=== PATIENT | female | born 1940 | race Caucasian/White ===

== ENCOUNTER 2024-05-15 18:07 | Emergency (ER) | payer MEDICARE, MEDICAID, SELFPAY ==
--- NOTE | ~2024-05-15 | XR_ITS ---
XR hand LT min 3V Ordering provider: Yari Monzon NP History: . injury fell pain dorsal hand . Comparison: None. FINDINGS: BONES: Fracture at the base of the fifth metacarpal bone is noted. No other fractures seen. JOINT SPACES: Well maintained. SOFT TISSUES: Soft tissue swelling in the area of the fifth metacarpal bone. IMPRESSION: Fracture of the base of the fifth metacarpal bone with no significant displacement. Reviewed, dictated and finalized at location A. IMPRESSION: Fracture of the base of the fifth metacarpal bone with no significant displacem ent.
[2024-05-15 18:16] VITALS: BP 166/75; PULSE 93; RESP 20; TEMP 36.5; O2SAT 98
--- NOTE | 2024-05-15 18:21 | ED.URI ---
HPI - URI/Sore Throat General Stated Complaint: Left hand/wrist injury Discharge Plan Discharge Follow-up/Referrals: PHYSICIAN NOT ON STAFF,NONSTAFF [Primary Care Provider] -
--- NOTE | 2024-05-15 18:22 | ED.UPPEXIN ---
HPI - Extremity Injury (Upper) General Chief Complaint: Extremity Injury, Upper Stated Complaint: Left hand/wrist injury Time Seen by Provider: 05/15/24 18:22 Source: patient, RN notes reviewed and old records reviewed Mode of arrival: ambulatory Limitations: no limitations History of Present Illness HPI narrative: 84 year old female accompanied by daughter presents to express care with complaints of falling when she missed a step today when she was going to the [employer] to get a hair cut this morning. Patient reports some pain and swelling to the dorsal lateral aspect of left hand with noted bruising and point tenderness over the 5th metacarpal bone, Patient is right hand dominant. Patient has full mobility of her left wrist. Patient denies any dizziness prior to fall and reports that she did not hit her head. MD complaint: injury to: left and hand Onset (ago): hour(s) (fell this morning) Other injuries: none Handedness: right Place: outdoors Severity scale (1-10): 5 Treatments prior to arrival: other (none) Related Data Home Medications Medication Instructions Recorded Confirmed famotidine 40 mg tablet 40 mg PO DAILY 05/15/24 05/15/24 metoprolol succinate 100 mg 150 mg PO DAILY 05/15/24 05/15/24 tablet,extended release 24 hr pravastatin 20 mg tablet 20 mg PO DAILY 05/15/24 05/15/24 valsartan 160 mg tablet 160 mg PO DAILY 05/15/24 05/15/24 Allergies Allergy/AdvReac Type Severity Reaction Status Date / Time No Known Allergies Allergy Verified 05/15/24 19:16 Review of Systems Review of Systems: CONSTITUTIONAL: Denies fever, chills, or sweats. EYES: Denies visual changes, redness, or discharge. ENT: Denies rhinorrhea, congestion, sore throat, or otalgia. CARDIOVASCULAR: Denies chest pain, palpitations, or edema. RESPIRATORY: Denies cough or dyspnea. GASTROINTESTINAL: Denies abdominal pain, nausea, vomiting, or diarrhea. GENITOURINARY: Denies dysuria or hematuria. SKIN: Denies rash or itching. MUSCULOSKELETAL: Denies back pain, left hand pain over 5th metacarpal region with bruising and swelling, or myalgia. NEUROLOGIC: Denies headache, numbness, or weakness. PSYCHIATRIC: Denies anxiety or depression. All systems reviewed & are unremarkable except as noted in HPI and below PMFSH Past Medical History Medical History (Updated 05/17/24 @ 15:22 by Yari Monzon NP) Acid reflux Hyperlipidemia Hypertension Surgical History Surgical History (Updated 05/15/24 @ 19:21 by Yari Monzon NP) H/O: hysterectomy History of ear surgery History of right cataract surgery Hx of appendectomy Hx of tonsillectomy Social History Social History (Updated 05/15/24 @ 19:19 by Yari Monzon NP) Smoking status: Never smoker Alcohol intake: never Substance use: never Living arrangements: with family Gender identity (if verbalized by the patient): Female Comments At time of signature, agree with nursing past medical, surgical, social and family history. There is no relevant family history pertinent to the presenting complaint Exam Narrative: GENERAL: Well-appearing, well-nourished, and in no acute distress. HEAD: Normocephalic, atraumatic. EYES: PERRLA and EOMI. ENT: Nares clear, no rhinorrhea or epistaxis. Mucous membranes moist. NECK: Supple.no lymphadenopathy CHEST: Clear to auscultation. No respiratory distress.SAO2 98 % on room air HEART: Regular rate and rhythm. No murmur heard. Normal peripheral pulses. ABDOMEN: Soft, nontender, nondistended, normal active bowel sounds. EXTREMITIES: Normal range of motion. No edema.Exception noted to left dorsal hand with bruising and tenderness over 5th metacarpal area, full ROM of left wrist with strong left radial pulse SKIN: Warm, dry, no rash. NEURO: No focal deficits. Alert and oriented x3. Course Course Emergency Course: Patient is aware of diagnosis, understands and agrees to treatment plan.? Anticipatory guidance given.? Patient agrees
[2024-05-15 19:03] VITALS: BP 166/75; PULSE 93; RESP 20; TEMP 36.5; O2SAT 98
== END 2024-05-15 19:35 | disposition home or self-care (01) ==
PROVIDERS: Emergency Provider Registered Nurse
DX: S62.347A Nondisplaced fracture of base of fifth metacarpal bone, left hand, initial encounter for closed fracture (principal); W10.9XXA Fall (on) (from) unspecified stairs and steps, initial encounter; K21.9 Gastro-esophageal reflux disease without esophagitis; I10 Essential (primary) hypertension; E78.5 Hyperlipidemia, unspecified
CPT/HCPCS: 29125; 73130; 99214; A4565; G0463